=== PATIENT | male | born 1940 | race Caucasian/White ===

== ENCOUNTER → 2017-01-15 | Outpatient (CLI) | payer MEDICARE, BC ==
--- NOTE | 2017-01-15 11:29 | CR ---
EXAMINATION: Lumbar spine HISTORY: Low back pain COMPARISON: 08/21/2016 TECHNIQUE: AP and lateral views FINDINGS: There is stable posterior fusion at L3-L4 and anterior fusion at L5-S1. The interbody osse ous fusion is noted from L4 to S1. No fracture or acute osseous abnormality. Bone mineralization oth erwise appears normal. Alignment appears unchanged. The SI joints are symmetric. IMPRESSION: Stable postoperative changes noted within the lumbar spine.
== END ==
LOC: MW.DI 09:31
PROVIDERS: ATTEND Neurological Surgery
DX: M54.5 Low back pain (principal); Z98.1 Arthrodesis status
CPT/HCPCS: 72100; 72100-26

== ENCOUNTER → 2017-01-22 | Outpatient (CLI) | payer MEDICARE, BC | LOC: MW.CHPM 08:00 | PROVIDERS: ATTEND Anesthesiology | DX: M96.1 Postlaminectomy syndrome, not elsewhere classified (principal); M79.1 Myalgia; G89.4 Chronic pain syndrome | CPT/HCPCS: 20553; 99214; J0702 ==

== ENCOUNTER 2017-06-12 10:39 | Day surgery (SDC) | payer MEDICARE, BC ==
[2017-06-12] MEDS ORDERED: Betamethasone Acetate/Betamethasone Sod Phosphate 30 MG/5 ML MDV ONE (11:28)
[2017-06-12] MEDS ORDERED: Iopamidol 408 MG/ML 50 ML SDV ONE (11:29)
[2017-06-12] MEDS ORDERED: Ropivacaine 0.5% 5 MG/ML 30 ML SDV ONE (11:29)
[2017-06-12] MEDS ORDERED: Lidocaine 2% 5 ML SDV ONE ×3 (11:29→14:23)
--- NOTE | 2017-06-12 12:17 | PCM.PREANE ---
Preanesthetic Assessment - Anesthesia/Transfusion/Family Hx Anesthesia History: Prior Anesthesia Without Reaction Family History of Anesthesia Reaction: No Transfusion History: No Prior Transfusion(s) Intubation History: Unknown - Review of Systems General: No Symptoms Pulmonary: No Symptoms Cardiovascular: No Symptoms Gastrointestinal: No Symptoms Neurological: No Symptoms Other: Reports: None - Physical Assessment Height: 1.83 m Weight: 95.708 kg ASA Class: 2 Mental Status: Alert & Oriented x3 Airway Class: Mallampati = 2 Dentition: Reports: Partial (upper front) Thyro-Mental Finger Breadths: 2 Mouth Opening Finger Breadths: 2 ROM/Head Extension: Limited/Partial Lungs: Clear to Auscultation, Normal Respiratory Effort Cardiovascular: Regular Rate, Regular Rhythm - Allergies Allergies/Adverse Reactions: Allergies Allergy/AdvReac Type Severity Reaction Status Date / Time amoxicillin [From Augmentin] Allergy Itching Verified 06/08/17 08:43 clavulanic acid Allergy Itching Verified 06/08/17 08:43 [From Augmentin] - Blood Blood Available: No - Anesthesia Plan Pre-Op Medication Ordered: None - Acknowledgements Anesthesia Type Planned: MAC Pt an Appropriate Candidate for the Planned Anesthesia: Yes Alternatives and Risks of Anesthesia Discussed w Pt/Guardian: Yes Pt/Guardian Understands and Agrees with Anesthesia Plan: Yes PreAnesthesia Questionnaire HEENT History: Reports: Other (See Below) Other HEENT History: wears glasses, top partial , deepak hearing aids Cardiovascular History: Reports: Hypertension Gastrointestinal History: Reports: GERD Musculoskeletal History: Reports: Arthritis, Back Pain, Chronic, Fracture Other Musculoskeletal History: hx fx hand, and ribs Neurological History: Reports: Migraines - Past Surgical History Head Surgeries/Procedures: Reports: None HEENT Surgical History: Reports: Tonsillectomy GI Surgical History: Reports: Colon (resection) Other GI Surgeries/Procedures: partial colectomy for abscess on colon Neurological Surgical History: Reports: Lumbar Spine Other Neurological Surgeries/Procedures: back surgery x3 Musculoskeletal Surgical History: Reports: Shoulder Surgery Other Musculoskeletal Surgeries/Procedures:: hx rt rotator cuff repair - SUBSTANCE USE Smoking Status *Q: Never Smoker Recreational Drug Use History: No - HOME MEDS Home Medications: Home Meds Aspirin [Wise Aspirin] 81 mg PO DAILY 06/08/17 [History] Baclofen 10 mg PO DAILY 06/08/17 [History] Losartan [Cozaar] 50 mg PO DAILY 06/08/17 [History] Omeprazole Magnesium [Prilosec Otc] 20 mg PO DAILY 06/08/17 [History] SUMAtriptan [Imitrex] 50 mg PO ASDIRECTED PRN 06/08/17 [History] - CURRENT (IN HOUSE) MEDS Current Meds: Current Medications Discontinued Medications Betamethasone Acet/Betameth SodPhos (Celestone Soluspan 6 Mg/Ml) Confirm Administered Dose 30 mg .ROUTE .STK-MED ONE Stop: 06/12/17 11:29 Iopamidol (Isovue-200 (41%)) Confirm Administered Dose 50 ml .ROUTE .STK-MED ONE Stop: 06/12/17 11:30 Lidocaine (Xylocaine-Mpf 2%) Confirm Administered Dose 10 ml .ROUTE .STK-MED ONE Stop: 06/12/17 11:30 Lidocaine HCl (Xylocaine-Mpf 1%) Confirm Administered Dose 5 ml .ROUTE .STK-MED ONE Stop: 06/12/17 11:30 Ropivacaine (Naropin 0.5%) Confirm Administered Dose 30 ml .ROUTE .STK-MED ONE Stop: 06/12/17 11:30
[2017-06-12] MEDS ORDERED: Midazolam 1 MG/ML 2 ML SDV ONE (14:21)
[2017-06-12] MEDS ORDERED: Propofol 200 MG/20 ML SDV ONE (14:21)
[2017-06-12] MEDS ORDERED: fentaNYL 100 MCG/2 ML SDV ONE (14:21)
--- NOTE | 2017-06-12 16:09 | PCM48HPAN ---
Post Anesthesia Note - EVALUATION WITHIN 48HRS OF ANESTHETIC Vital Signs in Normal Range: Yes Patient Participated in Evaluation: Yes Respiratory Function Stable: Yes Airway Patent: Yes Cardiovascular Function Stable: Yes Hydration Status Stable: Yes Pain Control Satisfactory: Yes Nausea and Vomiting Control Satisfactory: Yes Mental Status Recovered: Yes - COMMENTS/OBSERVATIONS Free Text/Narrative:: no anesthesia problems, patient skipped recovery room stage of postoperative care
--- NOTE | 2017-06-13 00:12 | OR ---
SURGEON: Ely Ontiveros D.O. DATE OF PROCEDURE: 06/12/2017 SURGEON: Ely Ontiveros D.O. OR STAFF PRESENT: 1. Dejah Che, monitor technician. 2. cryptologic technician, Shell Polanco. 3. Silvino Beltre RN, Michelle Zuluaga RN, and Tabitha Michelle RN. 4. LEATHER STAMPER, Jony Craig. WOUND CLASSIFICATION: 1. PREOPERATIVE DIAGNOSES: Failed back surgery syndrome. Chronic pain syndrome POSTOPERATIVE DIAGNOSIS: Failed back surgery syndrome. Chronic pain syndrome PROCEDURES PERFORMED: Spinal cord stimulator trial with: 1. [employer] Infinion 16, 50 cm, 16 contact trial lead placed on the right to the top of T8. 2. [employer] Infinion 16, 50 cm, 16 contact trial lead placed to the left of the top of T8. 3. Fluoroscopic guidance for needle placement. ANESTHESIA: MAC. PREOPERATIVE PAIN: 5/10 to 8/10. POSTOPERATIVE PAIN: 2/10 to 3/10. SCREENING QUESTIONS: The patient answered no to all the following questions: 1. Are you allergic to iodine, Betadine, or latex? 2. Do you have a bleeding disorder? 3. Are you on anti-inflammatories or blood thinners? 4. Are you ? 5. Do you have any current local or systemic infections? 6. Do you have any joint replacements, heart valve replacements or a pacemaker? DESCRIPTION OF PROCEDURE: The patient had the procedure thoroughly explained including risks, benefits, and alternatives. Consent was signed in my clinic indicating understanding and willingness to proceed. The patient presented to [facility] and was escorted to the dressing room to disrobe and change into a hospital gown. Preoperative history and screening were performed by the nurse. Vital signs were taken and stable. The patient was set up with an IV prior to the procedure. The patient was brought back to the procedure room and placed in the prone position on the procedure room table. A pillow was placed under the abdomen in order to flatten the lumbar lordosis. The patient was positioned comfortably and there was no evidence of infection at the sites of needle insertion. The back was prepped with ChloraPrep and sterilely draped. All personnel in the operating room were dressed in appropriate attire including surgical scrubs, head and shoe covers. This was to ensure sterility while in the treatment room. During the time fluoroscopy was in use, all personnel in the operating room wore lead escalera with thyroid collars. Sterile technique was used during the procedure. Prior to the start of the procedure, prophylactic antibiotic was administered IV. Ancef 1 gm. Skeletal landmarks were identified under fluoroscopic guidance for the T12-L1 interspace. At all insertion sites, the skin and soft tissues were anesthetized with 2% lidocaine preservative-free with a sterile 27-gauge 1-1/2 inch needle. The epidural space was entered at T12-L1 with a 14-gauge Tuohy epidural needle with loss-of- resistance technique. Under live fluoroscopic guidance, the 16 standard contact lead electrodes were advanced approximately to the midline at the middle of the T8 vertebral body on the left and then by same procedure on the right. No CSF, no heme, and no paresthesia were noted. Testing by the neuromodulation clinical specialist revealed appropriate coverage of the patient's normal areas of pain. The leads were then secured to the skin with occlusive dressing. No complications were noted throughout the procedure and vital signs were stable. Then the patient was brought to the recovery room in stable condition. At that time, the patient had additional stimulation patterns programmed which covered all the normal areas of pain. The patient tolerated the procedure well and was released home with postoperative instructions for followup in the clinic. The patient will fill out a pain diary throughout the week of the spinal cord stimulator trial. Additionally, prior to discharge, postoperative instructions were given to the patient and the patient voiced understanding, including understanding of those signs and symptoms that would require emergency care. FOLLOWUP: Follow up in the Pain Clinic for reprogramming and to evaluate the efficacy of the spinal cord stimulator in the morning. ZHEN / AUGUSTINE /[id number] GISELA
--- NOTE | 2017-06-13 09:43 | CR ---
EXAMINATION: Thoracic spine HISTORY: Spinal cord stimulator trial COMPARISON: Thoracic spine dated 02/23/2017 TECHNIQUE: 6 fluoroscopic images provided FINDINGS/IMPRESSION: Operative control films demonstrate spinal cord stimulator leads projecting over the lower thoracic spine.
== END 2017-06-12 16:25 | disposition home or self-care (01) ==
LOC: MW.SDS 10:39
PROVIDERS: ATTEND Anesthesiology
DX: M96.1 Postlaminectomy syndrome, not elsewhere classified (principal); I10 Essential (primary) hypertension; Z88.1 Allergy status to other antibiotic agents; Z88.8 Allergy status to other drugs, medicaments and biological substances; Z79.82 Long term (current) use of aspirin; Z79.899 Other long term (current) drug therapy; Z98.890 Other specified postprocedural states; Z90.49 Acquired absence of other specified parts of digestive tract; Z87.891 Personal history of nicotine dependence; Z79.891 Long term (current) use of opiate analgesic; G89.29 Other chronic pain; M51.36 Other intervertebral disc degeneration, lumbar region; M79.1 Myalgia
CPT/HCPCS: 63650; 76001; C1778; G0463; J0702; J2795; Q9966; J2250; J2704; J3010

== ENCOUNTER → 2020-03-01 | Day surgery (SDC) | payer MEDICARE, BC ==
[~2020-03-01] MED LIST: Lactated Ringers 1,000 ML IV SCH; Midazolam 1 MG/ML 2 ML SDV ONE; Propofol 200 MG/20 ML SDV ONE; fentaNYL 100 MCG/2 ML SDV ONE
--- NOTE | 2020-03-01 08:12 | PCM.PREANE ---
Preanesthetic Assessment - Anesthesia/Transfusion/Family Hx Anesthesia History: Prior Anesthesia Without Reaction Family History of Anesthesia Reaction: No Transfusion History: No Prior Transfusion(s) Intubation History: Unknown - Review of Systems General: No Symptoms Pulmonary: No Symptoms Cardiovascular: No Symptoms Neurological: No Symptoms, Other (chronic pain syndromes, has spinal stimulator) Other: Reports: None - Physical Assessment NPO Status Date: 02/29/20 Height: 6 ft Weight: 98.43 kg ASA Class: 2 Mental Status: Alert & Oriented x3 Airway Class: Mallampati = 2 ROM/Head Extension: Full Lungs: Clear to Auscultation, Normal Respiratory Effort Cardiovascular: Regular Rate, Regular Rhythm - Allergies Allergies/Adverse Reactions: Allergies Allergy/AdvReac Type Severity Reaction Status Date / Time acetaminophen Allergy Cannot Verified 02/24/20 13:49 [From Lorcet (hydrocodone)] Remember amoxicillin [From Augmentin] Allergy Cannot Verified 02/24/20 13:49 Remember clavulanic acid Allergy Cannot Verified 02/24/20 13:49 [From Augmentin] Remember hydrocodone Allergy Cannot Verified 02/24/20 13:49 [From Lorcet (hydrocodone)] Remember lidocaine Allergy Tachycardia Verified 02/24/20 13:49 - Blood Blood Available: No - Anesthesia Plan Pre-Op Medication Ordered: None - Acknowledgements Anesthesia Type Planned: General Anesthesia (tiva) Pt an Appropriate Candidate for the Planned Anesthesia: Yes Alternatives and Risks of Anesthesia Discussed w Pt/Guardian: Yes Pt/Guardian Understands and Agrees with Anesthesia Plan: Yes Additional Comments: PMH: [facility], will allow hearing aid use in endo room, chronic pain syndromes, has spinal cord stimulator PLAN: tiva PreAnesthesia Questionnaire HEENT History: Reports: Hard of Hearing, Other (See Below) Other HEENT History: wears glasses, has upper partial removable denture, has bilateral hearing aides Cardiovascular History: Reports: Hypertension Gastrointestinal History: Reports: Colon Polyp, Diverticulosis, GERD Musculoskeletal History: Reports: Arthritis, Back Pain, Chronic Other Musculoskeletal History: hx fx hand, and ribs Neurological History: Reports: Migraines Hematologic History: Reports: Other (See Below) Other Hematologic History: hx of hematoma in lower back after surgery- took anticoagulants - Past Surgical History Head Surgeries/Procedures: Reports: None HEENT Surgical History: Reports: Tonsillectomy GI Surgical History: Reports: Colon, Colonoscopy Other GI Surgeries/Procedures: Partial Colectomy Neurological Surgical History: Reports: Lumbar Spine, Spinal Fusion, Other (See Below) Other Neurological Surgeries/Procedures: insertion of Spinal Cord Stimulator Musculoskeletal Surgical History: Reports: ORIF, Shoulder Surgery Other Musculoskeletal Surgeries/Procedures:: left and right RTCR, ORIF right hand and left wrist- no hardware - SUBSTANCE USE Smoking Status *Q: Never Smoker Recreational Drug Use History: No - HOME MEDS Home Medications: Home Meds Aspirin [[place] Aspirin EC] 81 mg PO DAILY 06/08/17 [History] Baclofen 10 - 20 mg PO TID PRN 06/08/17 [History] Losartan [Cozaar] 50 mg PO QAM 06/08/17 [History] Omeprazole Magnesium [Prilosec Otc] 20 mg PO DAILY 06/08/17 [History] SUMAtriptan [Imitrex] 50 mg PO ASDIRECTED PRN MDD 200 mg 06/08/17 [History] Diclofenac Sodium 4 gm TOP QID PRN 02/24/20 [History] Fluticasone Propionate [Flonase Allergy Relief] 1 spray NASBOTH DAILY PRN 02/24/20 [History] Zinc Sulfate 440 mg PO DAILY 02/24/20 [History] - CURRENT (IN HOUSE) MEDS Current Meds: Current Medications Lactated Ringer's (Ringers, Lactated) 1,000 mls @ 125 mls/hr IV ASDIRECTED [place] Discontinued Medications Fentanyl (Sublimaze) Confirm Administered Dose 100 mcg .ROUTE .STK-MED ONE Stop: 03/01/20 07:22 Midazolam HCl (Versed 1 Mg/Ml) Confirm Administered Dose 2 mg .ROUTE .STK-MED ONE Stop: 03/01/20 07:22 Propofol (Diprivan 20 Ml) Confirm Administered Dose 200 mg .ROUTE .STK-MED ONE Stop: 03/01/20 07:22
--- NOTE | 2020-03-01 09:01 | PCM.OPNOTE ---
- General Post-Op/Procedure Note Date of Surgery/Procedure: 03/01/20 Operative Procedure(s): Colonoscopy with cold ascending colon polypectomy and cold descending colon polypectomy Pre Op Diagnosis: Change in bowel function with rectal pressure. Post-Op Diagnosis: Ascending and descending colon polyps. Mild sigmoid diverticulosis. Anesthesia Technique: MAC (ASA II) Primary Surgeon: Johnson Meek Condition: Good Free Text/Narrative:: DICTATION [id number] CPT CODE 54417
--- NOTE | 2020-03-01 09:37 | PCM48HPAN ---
Post Anesthesia Note - EVALUATION WITHIN 48HRS OF ANESTHETIC Vital Signs in Normal Range: Yes Patient Participated in Evaluation: Yes Respiratory Function Stable: Yes Airway Patent: Yes Cardiovascular Function Stable: Yes Hydration Status Stable: Yes Pain Control Satisfactory: Yes Nausea and Vomiting Control Satisfactory: Yes Mental Status Recovered: Yes Vital Signs: Last Vital Signs Temp 98.4 F 03/01/20 08:55 Pulse 64 03/01/20 09:10 Resp 12 03/01/20 09:10 BP 115/72 03/01/20 09:10 Pulse Ox 93 L 03/01/20 09:10
--- NOTE | 2020-03-01 09:37 | PCM.POSTAN ---
POST ANESTHESIA ASSESSMENT - MENTAL STATUS Mental Status: Alert, Oriented - VITAL SIGNS Vital Signs: Last Vital Signs Temp 98.4 F 03/01/20 08:55 Pulse 64 03/01/20 09:10 Resp 12 03/01/20 09:10 BP 115/72 03/01/20 09:10 Pulse Ox 93 L 03/01/20 09:10 - RESPIRATORY Respiratory Status: Respiratory Rate WNL, Airway Patent, O2 Saturation Stable - CARDIOVASCULAR CV Status: Pulse Rate WNL, Blood Pressure Stable - GASTROINTESTINAL GI Status: No Symptoms - POST OP HYDRATION Hydration Status: Adequate & Stable
--- NOTE | 2020-03-01 10:36 | OR ---
SURGEON: Johnson Meek M.D. DATE OF PROCEDURE: 03/01/2020 OPERATION PERFORMED: Colonoscopy with cold ascending colon and cold descending colon polypectomy. PRIMARY SURGEON: Johnson Meek MD. ANESTHESIA: MAC. ASA CLASSIFICATION: II. PREOPERATIVE DIAGNOSIS: Change in bowel function with rectal pressure. POSTOPERATIVE DIAGNOSIS: 1. Ascending colon polyp. 2. Descending colon polyp. 3. Mild sigmoid diverticulosis. DESCRIPTION OF PROCEDURE: The patient was taken to the endoscopy room and positioned on the endoscopy table in the left lateral decubitus position. Time-out was called for appropriate identification of the patient and procedure. Monitored anesthesia care was provided. The colonoscope was inserted into the rectum and advanced with minimal difficulty to the cecum. The cecum was identified by internal landmarks and external pressure. The ileocecal valve was not cannulated. The scope was withdrawn and just proximal to the first fold in the cecum, a polyp was encountered. This was removed with the cold biopsy forceps. No significant bleeding was noted. The remainder of the ascending colon, hepatic flexure, transverse colon, and splenic flexure showed no tumors, polyps, diverticula, or angiodysplastic changes. A second polyp was encountered in the proximal descending colon and likewise removed with the cold biopsy forceps. The colonoscope was slowly withdrawn through the sigmoid colon where a few small scattered diverticula were noted. Despite his history of a partial colectomy, I did not see an anastomotic line. Suffice it to say that the colonic lumen is widely patent. The colonoscope was then withdrawn to the rectum and retroflexed to visualize the anal orifice from above. In both the straight forward view and retroflexed view, no tumors or polyps were seen. There was no obvious obstruction to the fecal stream and no significant hemorrhoids were noted. The colonoscope was then straightened, the rectum aspirated, and the colonoscope removed. The patient tolerated the procedure well and was taken to recovery room in stable condition. YODIT / HARSHL /[id number]
[2020-03-01 11:23] VITALS: BP 134/70; PULSE 56
== END | disposition home or self-care (01) ==
LOC: MW.SDS 07:49
PROVIDERS: ATTEND Surgery
DX: D12.2 Benign neoplasm of ascending colon (principal); D12.4 Benign neoplasm of descending colon; K57.30 Diverticulosis of large intestine without perforation or abscess without bleeding; I10 Essential (primary) hypertension; Z86.010 Personal history of colon polyps; Z88.6 Allergy status to analgesic agent; Z88.1 Allergy status to other antibiotic agents; Z88.5 Allergy status to narcotic agent; Z98.890 Other specified postprocedural states; Z79.82 Long term (current) use of aspirin; Z79.899 Other long term (current) drug therapy; Z79.891 Long term (current) use of opiate analgesic; Z90.49 Acquired absence of other specified parts of digestive tract; Z87.891 Personal history of nicotine dependence; Z87.19 Personal history of other diseases of the digestive system; Z96.89 Presence of other specified functional implants; Z78.9 Other specified health status
CPT/HCPCS: 45380; J2704; J7120; 88305; J2250; J3010

== ENCOUNTER 2021-04-06 14:00 | Emergency (ER) | payer MEDICARE, BC ==
--- NOTE | 2021-04-06 14:22 | EDM.PDOC ---
ED HPI GENERAL MEDICAL PROBLEM - General Chief Complaint: Lower Extremity Injury/Pain Stated Complaint: HURT HIP/HIT BY COW Time Seen by Provider: 04/06/21 14:05 Source of Information: Reports: Patient History Limitations: Reports: No Limitations - History of Present Illness INITIAL COMMENTS - FREE TEXT/NARRATIVE: HISTORY AND PHYSICAL: History of present illness: Patient is an 80-year-old male who presents to the emergency room with complaints of left lateral rib pain and left posterior hip pain post fall. 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 He denies hitting his head or having any loss of consciousness. He was able to get up by himself from the ground. When he was assisted into the emergency room he is up and ambulating and able to bear weight on the extremity. He denies any urinary or fecal incontinence. Denies any numbness, tingling, saddle paresthesias or weakness of distal extremities. Patient denies any fever, chills, headache, change in vision, syncope or near syncope. Denies any chest pain, shortness of breath or cough. Denies any GI or symptoms. Review of systems: As per history of present illness and below otherwise all systems reviewed and negative. Past medical history: As per history of present illness and as reviewed below otherwise noncontributory. Surgical history: As per history of present illness and as reviewed below otherwise non contributory. Social history: See social history for further information Family history: As per history of present illness and as reviewed below otherwise noncontributory. Physical exam: General: Well developed and well nourished. Alert and orientated x 3. Nontoxic in appearance and in no acute distress. Vital signs are stable and have been reviewed by me. Nursing notes were reviewed. HEENT: Atraumatic, nontender, no obvious injury, normocephalic, pupils equal and reactive bilaterally, negative for conjunctival pallor or scleral icterus, mucous membranes moist, TMs normal bilaterally (wears hearing aids), throat clear, teeth intact, neck supple, nontender, trachea midline. No drooling or trismus noted. No meningeal signs. No hot potato voice noted. Lungs: Clear to auscultation bilaterally. No wheezes, rales, or rhonchi. Chest tender to palpation of left lateral/midaxillary line. Normal work of breathing, no accessory muscles used. Heart: S1S2, regular rate and rhythm without overt murmur, gallops, or rubs. No JVD. No peripheral edema Abdomen: Soft, nondistended, nontender. Normoactive bowel sounds. Negative for masses or costovertebral tenderness. Pelvis: Stable nontender. C-spine/Back: No pinpoint vertebral tenderness upon palpation. No crepitus, step-offs or obvious deformities. Patient is ambulatory into the emergency room without difficulty or deficit. Able to rock back on heels and walk on toes. Denies any urinary or fecal incontinence. Denies any numbness, tingling or saddle paresthesia. No concerns of serious infection, fracture or cord compression, or cauda equina syndrome. Deep tendon reflexes brisk bilaterally. Skin: Abrasion to left posterior shoulder, left chest wall and left patella. Remaining skin is intact, warm, dry. No lesions or rashes noted. Hematologic: No petechiae or purpra. Mucosa appropriate color and normal nail bed color and refill. Extremities: Atraumatic, moves all extremities per self without difficulty or deficits, negative for cords or calf pain. Neurovascular unremarkable. Neuro: Awake, alert, oriented. Cranial nerves II through XII unremarkable. Cerebellum unremarkable. Motor and sensory unremarkable throughout. Exam nonf ocal. Psychiatric: Mood and affect are appropriate. Normal thought process. Answering questions appropriately. Notes: *This patient was seen and evaluated during the 2019 SARS-CoV-2 novel coronaviru s pandemic period. Community viral transmission is ongoing at time of this encounter and the emergency department is operating under pandemic response procedures. Patient is an 80-year-old male who presents to the emergency room with complaints of left chest wall and left posterior after being hit by a cow. Patient is ambulatory and able to bear weight. He does have abrasions noted to the left posterior shoulder, left knee and left chest wall. Wound care was provided. Patient's tetanus is up-to-date. He does state that he takes oxycodone for his chronic back pain and has not taken it yet today, requesting his prescribed medication to be given now. We will give him 1 tab of oxycodone 5/325. I did verify with prescription drug monitoring program that he does this medication as prescribed. We will get x-ray. He declines wanting any lab work. He states he does have to void, will get a UA at this time. Hip and pelvis x-ray shows no dislocation or displaced fracture. No displaced rib fracture or acute cardiopulmonary findings. Patient states he has oxycodone at home, I do not feel comfortable giving him any further narcotics. He states he has diclofenac cream and lidocaine patches at home in which she is comfortable using. I did give him a walker to use to help ambulate for comfort purposes. We discussed the need for follow-up with orthopedics as there could be a hidden occult fracture that is not witnessed at this time due to the recency of injury. I have talked with the patient about today's findings, in addition to providing specific details for plan of care. Reassessment at the time of disposition demonstrates that the patient is in no acute distress. The patient is stable for discharge, counseling was provided and we discussed in great detail signs and symptoms that would prompt them to return to the Emergency Department. Medication, follow up and supportive care measures were reviewed and discussed. Voices understanding and is agreeable to plan of care. Denies any further questions or concerns at this time. Diagnostics: UA, Chest w/ ribs, pelvis w/ hip Therapeutics: Oxycodone 5/325, Lidoderm patch, walker Prescription: None Impression: Left hip contusion Chest wall contusion Fall Abrasion Plan: 1. You were evaluated today on an emergent basis. Your x-rays of your chest/ribs and pelvis/hip show no fractures or dislocations. You will likely be sore over the next several days so please rest and apply gentle heat/stretching of the areas. 2. You can alternate Tylenol and ibuprofen as needed for pain and fever management. 3. We encourage you to follow up with your primary care provider and/or recommended specialist in the next few days for re-evaluation and further care/management. 4. If your symptoms should worsen, new symptoms develop or any of the signs and symptoms we discussed should arise please return to the emergency room or call 911 (if needed). Definitive disposition and diagnosis as appropriate pending reevaluation and review of above. left hip Pain Score (Numeric/FACES): 6 - Related Data Allergies Allergy/AdvReac Type Severity Reaction Status Date / Time No Known Allergies Allergy Verified 04/06/21 14:45 Home Meds: Home Meds Aspirin [[place] Aspirin EC] 81 mg PO DAILY 06/08/17 [History] Baclofen 10 - 20 mg PO TID PRN 06/08/17 [History] Losartan [Cozaar] 50 mg PO QAM 06/08/17 [History] Omeprazole Magnesium [Prilosec Otc] 20 mg PO DAILY 06/08/17 [History] SUMAtriptan [Imitrex] 50 mg PO ASDIRECTED PRN MDD 200 mg 06/08/17 [History] Diclofenac Sodium 4 gm TOP QID PRN 02/24/20 [History] oxyCODONE 04/06/21 [History] Past Medical History HEENT History: Reports: Hard of Hearing, Other (See Below) Other HEENT History: wears glasses, has upper partial removable denture, has bilateral hearing aides Cardiovascular History: Reports: Hypertension Gastrointestinal History: Reports: Colon Polyp, Diverticulosis, GERD Musculoskeletal History: Reports: Arthritis, Back Pain, Chronic Other Musculoskeletal History: hx fx hand, and ribs Neurological History: Reports: Migraines Hematologic History: Reports: Other (See Below) Other Hematologic History: hx of hematoma in lower back after surgery- took anticoagulants - Past Surgical History Head Surgeries/Procedures: Reports: None HEENT Surgical History: Reports: Tonsillectomy GI Surgical History: Reports: Colon, Colonoscopy Other GI Surgeries/Procedures: Partial Colectomy Neurological Surgical History: Reports: Lumbar Spine, Spinal Fusion, Other (See Below) Other Neurological Surgeries/Procedures: insertion of Spinal Cord Stimulator Musculoskeletal Surgical History: Reports: ORIF, Shoulder Surgery Other Musculoskeletal Surgeries/Procedures:: left and right RTCR, ORIF right hand and left wrist- no hardware Review of Systems - Review of Systems Review Of Systems: Comprehensive ROS is negative, except as noted in HPI. ED EXAM, GENERAL - Physical Exam Exam: See Below (See dictation) Course - Vital Signs Last Recorded V/S: Last Vital Signs Temp 97.6 F 04/06/21 14:39 Pulse 89 04/06/21 15:39 Resp 19 04/06/21 15:39 BP 139/89 04/06/21 15:39 Pulse Ox 96 04/06/21 15:39 - Orders/Labs/Meds Orders: Active Orders 24 hr Category Date Time Status Incentive Spirometry [RT Incentive Spirometry] [RC] Care 04/06/21 15:16 Ordered ASDIRECTED DME for Discharge [COMM] Stat Oth 04/06/21 15:13 Ordered Labs: Laboratory Tests 04/06/21 Range/Units 14:32 Urine Color YELLOW Urine Appearance CLEAR Urine pH 6.0 (5.0-8.0) Ur Specific [place] 1.020 (1.001-1.035) Urine Protein TRACE H (NEGATIVE) mg/dL Urine Glucose (UA) NEGATIVE (NEGATIVE) mg/dL Urine Ketones TRACE H (NEGATIVE) mg/dL Urine Occult Blood SMALL H (NEGATIVE) Urine Nitrite NEGATIVE (NEGATIVE) Urine Bilirubin NEGATIVE (NEGATIVE) Urine Urobilinogen 0.2 (<2.0) EU/dL Ur Leukocyte Esterase NEGATIVE (NEGATIVE) Urine RBC 1-3 (0-2/HPF) Urine WBC 0-2 (0-5/HPF) Ur Epithelial Cells OCCASIONAL (NONE-FEW) Urine Bacteria RARE (NEGATIVE) Urine Mucus LIGHT (NONE-MOD) Meds: Medications Discontinued Medications Generic Name Dose Route Start Last Admin Trade Name Adrian PRN Reason Stop Dose Admin Lidocaine 700 mg 04/06/21 15:12 04/06/21 15:27 Lidocaine 5% 700 Mg Patch TRDERM 04/06/21 15:13 700 mg ONETIME ONE Administration Oxycodone/Acetaminophen 1 tab 04/06/21 14:52 04/06/21 15:09 Acetaminophen/Oxycodone 325-5 Mg Tab PO 04/06/21 14:53 1 tab ONETIME ONE Administration Departure - Departure Time of Disposition: 15:14 Disposition: Home, Self-Care 01 Clinical Impression: Abrasion Contusion of rib on left side Qualifiers: Encounter type: initial encounter Qualified Code(s): S20.212A - Contusion of left front wall of thorax, initial encounter Contusion of hip, left Qualifiers: Encounter type: initial encounter Qualified Code(s): S70.02XA - Contusion of left hip, initial encounter Fall Qualifiers: Encounter type: initial encounter Qualified Code(s): W19.XXXA - Unspecified fall, initial encounter - Discharge Information Instructions: Contusion, [id number] Referrals: PCP,None [Primary Care Provider] - Forms: ED Department Discharge Additional Instructions: The following information is given to patients seen in the emergency department who are being discharged to home. This information is to outline your options for follow-up care. We provide all patients seen in our emergency department with a follow-up referral. The need for follow-up, as well as the timing and circumstances, are variable depending upon the specifics of your emergency department visit. If you don't have a primary care physician on staff, we will provide you with a referral. We always advise you to contact your personal physician following an emergency department visit to inform them of the circumstance of the visit and for follow-up with them and/or the need for any referrals to a consulting specialist. The emergency department will also refer you to a specialist when appropriate. This referral assures that you have the opportunity for follow-up care with a specialist. All of these measure are taken in an effort to provide you with optimal care, which includes your follow-up. Under all circumstances we always encourage you to contact your private physician who remains a resource for coordinating your care. When calling for follow-up care, please make the office aware that this follow-up is from your recent emergency room visit. If for any reason you are refused follow-up, please contact the [facility] Emergency Department at and asked to speak to the emergency department charge nurse. [facility] [address] [place] [address] [id number] [address] [address] Thank you for choosing the [facility] emergency department in [place] for your medical needs today. It was a pleasure caring for you. Today you were seen in the emergency department for contusion after attacked by a cow. 1. You were evaluated today on an emergent basis. Your x-rays of your chest/ribs and pelvis/hip show no fractures or dislocations. You will likely be sore over the next several days so please rest and apply gentle heat/stretching of the areas. 2. You can alternate Tylenol and ibuprofen as needed for pain and fever management. 3. We encourage you to follow up with your primary care provider and/or recommended specialist in the next few days for re-evaluation and further care/management. 4. If your symptoms should worsen, new symptoms develop or any of the signs and symptoms we discussed should arise please return to the emergency room or call 911 (if needed). Sepsis Event Note (ED) - Focused Exam Vital Signs: Vital Signs Temp Pulse Resp BP Pulse Ox 04/06/21 15:39 89 19 139/89 96 04/06/21 15:10 96 18 135/76 91 L 04/06/21 14:39 97.6 F 86 18 135/76 92 L - My Orders Last 24 Hours: My Active Orders 04/06/21 15:13 DME for Discharge [COMM] Stat 04/06/21 15:16 Incentive Spirometry [RT Incentive Spirometry] [RC] ASDIRECTED - Assessment/Plan Last 24 Hours: My Active Orders 04/06/21 15:13 DME for Discharge [COMM] Stat 04/06/21 15:16 Incentive Spirometry [RT Incentive Spirometry] [RC] ASDIRECTED
[2021-04-06] MEDS ORDERED: Acetaminophen/oxyCODONE 325-5 MG Tab PO ONE (14:52)
--- NOTE | 2021-04-06 15:06 | CR ---
INDICATION: Trauma. TECHNIQUE: Left hip radiographs, 2 views with AP pelvis. COMPARISON: None available. FINDINGS: No dislocation or displaced fracture. Mild bilateral hip osteophytosis with relative joint space preservation. The pubic symphysis and SI joints are intact. Partially imaged postsurgical changes of multilevel lumbar spinal fusion. Metallic generator device overlying the left lower abdomen. IMPRESSION: No dislocation or displaced fracture. Dictated by Manfred Lara MD @ 04/06/2021 3:04:08 PM Dictated by: Manfred Lara MD @ 04/06/2021 15:04:13 (Electronically Signed)
[2021-04-06] MEDS ORDERED: Lidocaine 5% 700 MG Patch TRDERM ONE (15:12)
--- NOTE | 2021-04-06 15:12 | CR ---
INDICATION: Trauma. TECHNIQUE: PA chest radiograph as well as 3 additional views of the left ribs. COMPARISON: None available. FINDINGS: No focal pulmonary opacity, pneumothorax, or pleural effusion. Normal cardiac size. Moderate thoracic aortic tortuosity. Spinal stimulator device overlying the mid thoracic spine. No displaced rib fracture identified on the provided radiographic images. IMPRESSION: No displaced rib fracture or acute cardiopulmonary findings. Dictated by Manfred Lara MD @ 04/06/2021 3:11:32 PM Dictated by: Manfred Lara MD @ 04/06/2021 15:11:38 (Electronically Signed)
[2021-04-06 15:40] VITALS: BP 139/89; PULSE 89
== END 2021-04-06 15:49 | disposition home or self-care (01) ==
LOC: MW.ED 14:00
DX: S20.212A Contusion of left front wall of thorax, initial encounter (principal); S70.02XA Contusion of left hip, initial encounter; K21.9 Gastro-esophageal reflux disease without esophagitis; Z79.82 Long term (current) use of aspirin; Z79.899 Other long term (current) drug therapy; W18.39XA Other fall on same level, initial encounter
CPT/HCPCS: 71101; 73502; 81001; 99283; A9270

== ENCOUNTER 2021-06-17 16:03 | Emergency (ER) | payer MEDICARE, BC ==
[2021-06-17] MEDS ORDERED: Morphine 4 MG/ML Syringe IVPUSH ONE (16:53)
--- NOTE | 2021-06-17 17:30 | PCM.EKG ---
#1 Interpretation EKG Date: 06/17/21 Time: 17:00 Rhythm: NSR Rate (Beats/Min): 67 [place]: Normal P-Wave: Present QRS: Normal ST-T: Normal QT: Normal Comparison: NA - No Prior EKG EKG Interpretation Comments: Sinus Rhythm with LVH
[2021-06-17] MEDS ORDERED: Iopamidol 755 MG/ML 500 ML Multipack Bottle IVPUSH ONE (17:45)
[2021-06-17 17:54] LABS: BLOOD UREA NITROGEN,BUN 16 mg/dL (7.0-18.0); CARBON DIOXIDE,CO2 25.1 mmol/L (21.0-32.0); CHLORIDE,CL 102 mmol/L (98-107); GLUCOSE RANDOM 137 mg/dL (74-106); POTASSIUM,K 3.8 mmol/L (3.5-5.1); SODIUM,NA 139 mmol/L (136-148)
[2021-06-17] MEDS ORDERED: HYDROmorphone 1 MG/ML Syringe IVPUSH ONE (18:17)
--- NOTE | 2021-06-17 18:20 | CT ---
INDICATION: Back and abdominal pain TECHNIQUE: CTA chest was acquired with 125 cc Isovue 370 IV contrast. COMPARISON: None FINDINGS: Cardiovascular structures: Suboptimal opacification of the thoracic aorta. No dissection is identified. No pulmonary embolism. Heart size is normal. Thoracic aorta and main pulmonary artery are normal in caliber. Mediastinum and jerome: No mass or adenopathy. Lungs: Scattered linear atelectasis. Pleura and pericardium: No effusions. Chest wall and axilla: No mass or adenopathy. Upper abdomen: Please see abdomen pelvis report. Bones: Neurostimulator device enters the spinal canal at the T8-T9 level and extends cephalad to the T6 level. Old compression fracture of the T11 vertebrae. No acute osseous findings. IMPRESSION: There is suboptimal opacification of the thoracic aorta. No dissection or pulmonary embolism identified. No acute intrathoracic abnormality. Please note that all CT scans at this facility use dose modulation, iterative reconstruction, and/or weight-based dosing when appropriate to reduce radiation dose to as low as reasonably achievable. Dictated by Anne Lara MD @ 06/17/2021 6:18:50 PM (Electronically Signed)
--- NOTE | 2021-06-17 18:41 | EDM.PDOC ---
<Rick Neal - Last Filed: 06/17/21 19:21> ED HPI GENERAL MEDICAL PROBLEM - General Chief Complaint: Abdominal Pain Stated Complaint: STOMACH PAIN Time Seen by Provider: 06/17/21 16:27 - History of Present Illness INITIAL COMMENTS - FREE TEXT/NARRATIVE: CHIEF COMPLAINT(S): Abdominal pain and back pain HISTORY OF PRESENT ILLNESS: This is a 81-year-old man with a past medical history of GERD, chronic back pain on oxycodone who comes to the emergency department with a chief complaint of abdominal pain and back pain. The patient states that starting this morning after breakfast he started to experience pain which he describes as sharp 10 out of 10 pain that is located from his mid back anteriorly to the middle of his abdomen. He states that this pain is constant. He denies any nausea, vomiting, diarrhea, medic easier, hematemesis or bilious emesis. He denies any fevers or chills. He denies any chest pain or shortness of breath. He denies any diaphoresis. He states he took oxycodone but that did not help. He states it also feels like his muscles are tight. There are no relieving factors. No aggravating factors. He denies any recent travel, recent surgery or prior history of DVT or PE. He denies any history of abdominal aortic aneurysm or history of dissection. REVIEW OF SYSTEMS: Constitutional: Denies fever, chills. Eyes: Denies eye pain Ears, Nose, Mouth, & Throat: Denies earache Cardiovascular: Denies chest pain Respiratory: Denies shortness of breath Gastrointestinal: Positive for epigastric abdominal pain. Denies nausea, vomiting, diarrhea, hematochezia, hematemesis, bilious emesis Genitourinary: Denies hematuria Skin:Denies a rash MSK: Positive for back pain. Denies joint pain Neurological: Denies blurred vision Psychiatric: Denies depression PAST MEDICAL HISTORY: As per history of present illness and as reviewed below otherwise noncontributory. SURGICAL HISTORY: As per history of present illness and as reviewed below otherwise noncontributory. SOCIAL HISTORY: As per history of present illness and as reviewed below otherwise noncontributory. FAMILY HISTORY: As per history of present illness and as reviewed below otherwise noncontributory. EXAMINATION OF ORGAN SYSTEMS/BODY AREAS: Constitutional: Blood pressure is 187/96, heart rate 63, respiratory rate 20 with an oxygen saturation of 95% on room air. Temperature 36.8. General: Elderly man who appears to be in a moderate amount of pain. Psychiatric: Appropriate mood and affect. Eyes: No scleral icterus or conjunctival erythema ENMT: Moist mucous membranes. No pharyngeal erythema Cardiovascular: Regular, rate, and rhythm. No gallops, murmurs, or rubs. Bilateral upper extremity pulses symmetric and intact. No peripheral edema. No JVD. Respiratory: Lungs clear to auscultation bilaterally. No wheezes, rales, or rhonchi. Gastrointestinal: Soft, tenderness palpation the epigastric region. Nondistended. Negative Carrizales's and McBurney's. No rebound or guarding. Norm oactive bowel sounds Genitourinary: No suprapubic tenderness Musculoskeletal: Normal range of motion. No midline spinal tenderness. No skin changes. Skin: No lesions or abrasions. Neurological: Alert, GCS 15 strength and sensation grossly intact in upper and lower extremities bilaterally MEDICAL DECISION MAKING AND COURSE IN THE ED WITH INTERPRETATION/REVIEW OF DIAGNOSTIC STUDIES: This is a 81-year-old man with a past medical history of hypertension and GERD who comes to the emergency department with acute onset epigastric abdominal pain and back pain who is mildly hypertensive. At this time given his history and concerned about the possibility of dissection versus aortic aneurysm. We will obtain a CT angiogram of the chest abdomen and pelvis. We will provide the patient with 4 mg of IV morphine for pain relief. In addition we will obtain CBC, CMP, troponin, urinalysis. EKG was obtained which not reveal any acute signs of ischemia. Laboratory: CBC reveals thrombocytopenia otherwise unremarkable. CMP reveals hyperglycemia at 137, hyperbilirubinemia at 1.6, transaminitis with an AST of 173, ALT of 146 and alkaline phosphatase of 148. Troponin is negative. Urinalysis shows microscopic hematuria otherwise unremarkable. On reevaluation the patient did report continued pain. Therefore we provided the patient with 1 mg of IV Dilaudid. The radiological images were viewed by myself along with reading the report from the radiologist. CT angiogram of the chest does not reveal any dissection or pulmonary embolism and no acute intrathoracic abnormality. CT angiogram of the abdomen does not reveal any evidence of abdominal aortic aneurysm or dissection. There is cholelithiasis and hepatic steatosis with colonic diverticulosis without any acute intra-abdominal process. Given the elevation in the enzymes on labs will obtain a right upper quadrant ultrasound to evaluate for acute cholecystitis. The patient was signed out to oncoming night team physician pending ultrasound and reevaluation. DISPOSITION: Patient was signed out to oncoming night team physician pending ultrasound and final disposition CONDITION: Fair PROCEDURES: Cardiac monitoring interpretation, pulse oximetry interpretation FINAL IMPRESSION(S)/DIAGNOSES: 1. Acute abdominal pain possibly secondary to cholecystitis versus choledocholithiasis Critical Care Procedure Note Authorized and performed by: Rick Neal M.D. Critical Care Time: 43 minutes Due to a high probability of clinically significant, life threatening deterioration, the patient required my highest level of preparedness to intervene emergently and I personally spent this critical care time directly and personally managing the patient. This critical care time included obtaining a history, examining the patient, pulse oximetry; ordering and review of studies; arranging urgent treatment with development of a management plan; evaluation of a patients reponse to treatment; frequent assessment; and discussions with other providers. This critical care time was performed to assess and manage the high probability of imminent, life threatening deterioration that could result in multiorgan failure. It was exclusive of separate billable procedures and treating other patients. Please see MDM section and rest of the note for further information on patient assessment and treatment. Please see MDM section and rest of the note for further information on patient assessment and treatment. Rick Neal M.D. Right Upper Abdomen Pain Score (Numeric/FACES): 8 - Related Data Allergies Allergy/AdvReac Type Severity Reaction Status Date / Time No Known Allergies Allergy Verified 06/17/21 16:59 Home Meds: Home Meds Aspirin [[place] Aspirin EC] 81 mg PO DAILY 06/08/17 [History] Baclofen 10 - 20 mg PO TID PRN 06/08/17 [History] Losartan [Cozaar] 50 mg PO QAM 06/08/17 [History] Omeprazole Magnesium [Prilosec Otc] 20 mg PO DAILY 06/08/17 [History] SUMAtriptan [Imitrex] 50 mg PO ASDIRECTED PRN MDD 200 mg 06/08/17 [History] Diclofenac Sodium 4 gm TOP QID PRN 02/24/20 [History] oxyCODONE 04/06/21 [History] Past Medical History - Past Health History Medical/Surgical History: Denies Medical/Surgical History HEENT History: Reports: Hard of Hearing, Other (See Below) Other HEENT History: wears glasses, has upper partial removable denture, has bilateral hearing aides Cardiovascular History: Reports: Hypertension Respiratory History: Reports: None Gastrointestinal History: Reports: Colon Polyp, Diverticulosis, GERD Genitourinary History: Reports: None Musculoskeletal History: Reports: Arthritis, Back Pain, Chronic Other Musculoskeletal History: hx fx hand, and ribs Neurological History: Reports: Migraines Psychiatric History: Reports: None Endocrine/Metabolic History: Reports: None Hematologic History: Reports: Other (See Below) Other Hematologic History: hx of hematoma in lower back after surgery- took anticoagulants Immunologic History: Reports: None Oncologic (Cancer) History: Reports: None Dermatologic History: Reports: None - Infectious Disease History Infectious Disease History: Reports: Chicken Pox, Influenza, Measles, Mumps - Past Surgical History Head Surgeries/Procedures: Reports: None HEENT Surgical History: Reports: Tonsillectomy GI Surgical History: Reports: Colon, Colonoscopy Other GI Surgeries/Procedures: Partial Colectomy Neurological Surgical History: Reports: Lumbar Spine, Spinal Fusion, Other (See Below) Other Neurological Surgeries/Procedures: insertion of Spinal Cord Stimulator Musculoskeletal Surgical History: Reports: ORIF, Shoulder Surgery Other Musculoskeletal Surgeries/Procedures:: left and right RTCR, ORIF right hand and left wrist- no hardware Social & Family History - Family History Family Medical History: No Pertinent Family History - Tobacco Use Tobacco Use Status *Q: Never Tobacco User - Caffeine Use Caffeine Use: Reports: Coffee - Recreational Drug Use Recreational Drug Use: No Departure - Departure Disposition: Home, Self-Care 01 Clinical Impression: Cholelithiasis Qualifiers: Cholelithiasis location: gallbladder Cholecystitis presence: with cholecystitis Cholecystitis acuity: unspecified acuity Biliary obstruction: without biliary obstruction Qualified Code(s): 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 The CT scan of your abdomen pelvis not reveal any significant abnormalities. Your blood test however did show that your liver enzymes are slightly elevated which could be consistent with gallstones. An ultrasound of your gallbladder was then obtained which does reveal that you do have gallstones in your gallbladder but no evidence of infection or acute obstruction. This is likely the cause of the pain that you have been experiencing. As we discussed, I am recommending that you avoid any fatty or greasy foods until you are further evaluated by surgery. Please keep your appointment on June 22 with your family doctor so they can assist you with referrals. I will also give the phone number for our surgery clinic here as a option to see. You will also be given a prescription for Bentyl to take before eating which is a medicine that helps relax your gallbladder. The following information is given to patients seen in the emergency department who are being discharged to home. This information is to outline your options for follow-up care. We provide all patients seen in our emergency department with a follow-up referral. The need for follow-up, as well as the timing and circumstances, are variable depending upon the specifics of your emergency department visit. If you don't have a primary care physician on staff, we will provide you with a referral. We always advise you to contact your personal physician following an emergency department visit to inform them of the circumstance of the visit and for follow-up with them and/or the need for any referrals to a consulting specialist. The emergency department will also refer you to a specialist when appropriate. This referral assures that you have the opportunity for follow-up care with a specialist. All of these measure are taken in an effort to provide you with optimal care, which includes your follow-up. Under all circumstances we always encourage you to contact your private physician who remains a resource for coordinating your care. When calling for follow-up care, please make the office aware that this follow-up is from your recent emergency room visit. If for any reason you are refused follow-up, please contact the [facility] Emergency Department at and asked to speak to the emergency department charge nurse. [facility] - [facility] [address] [place] [id number] [facility] [address] [place] [id number] Sepsis Event Note (ED) - Evaluation Sepsis Screening Result: No Definite Risk <Darin Zhong - Last Filed: 06/17/21 21:11> ED HPI GENERAL MEDICAL PROBLEM - History of Present Illness INITIAL COMMENTS - FREE TEXT/NARRATIVE: 9:06 PM: Signout received from Dr. Jama at 7 PM. This is a 81-year-old gentleman who presents ER today with abdominal pain rating to his back. Patient had a CT scan of his abdomen pelvis which was unremarkable. Patient does have mildly elevated LFTs so a ultrasound was ordered. Patient's ultrasound reveals cholelithiasis without any sonographic evidence of cholecystitis. Patient's common bile duct measures 5 mm. Patient has a minimal fatty infiltration of the liver. Patient has been reevaluated by me multiple times throughout his ED visit. On all 3 occasions, the patient reports that his pain has been completely resolved and he has had no further abdominal or back pain since he was given his pain medicines greater than 3 hours ago. I have discussed the results of the ultrasound and the CT scan with the patient he understands that he will likely need to be reevaluated by surgery for further evaluation. Patient has no evidence of cholecystitis. Patient is comfortable has no pain at this time. Patient be discharged home with a prescription for Bentyl and referral for surgery clinic. Patient reports that he does have an appointment with his family practice doctor on June 22 and he will be able to discuss with him referral to surgery either here or in [place] which is patient's preference. I discussed dietary changes and discussion with the patient. He reports that he has noticed in the past that whenever he eats isaac or sausage that he has sim ilar kind of discomfort and he will try and refrain from fatty foods until he is evaluated by surgery. Reassessment at the time of disposition demonstrates that the patient is in no acute distress. The patient has remained stable throughout the entire ED visit and is without objective evidence for acute process requiring urgent intervention or hospitalization. The patient is stable for discharge, counseling is provided as documented above, discussed symptomatic treatment and specific conditions for return. I have spoken with the patient/caregiver and discussed todays findings, in addition to providing specific details for the plan of care. Questions are answered and there is agreement with the plan. ED ROS GENERAL - Review of Systems Review Of Systems: See Below ED EXAM, GENERAL - Physical Exam Exam: See Below Course - Vital Signs Last Recorded V/S: Last Vital Signs Temp 98.2 F 06/17/21 16:26 Pulse 73 06/17/21 18:47 Resp 16 06/17/21 18:47 BP 161/86 H 06/17/21 18:47 Pulse Ox 95 06/17/21 18:47 - Orders/Labs/Meds Orders: Active Orders 24 hr Category Date Time Status Cardiac Monitoring [RC] . DIRECTED Care 06/17/21 16:50 Active Pulse Oximetry [RC] ASDIRECTED Care 06/17/21 16:50 Active Ang Abdomen Aorta w Bi Runoff [CT] Stat Exams 06/17/21 16:53 Taken Labs: Laboratory Tests 06/17/21 06/17/21 06/17/21 Range/Units 17:08 17:08 17:08 WBC 7.72 (4.0-11.0) K/uL RBC 4.85 (4.50-5.90) M/uL Hgb 14.5 (13.0-17.0) g/dL Hct 43.6 (38.0-50.0) % MCV 89.9 (80.0-98.0) fL MCH 29.9 (27.0-32.0) pg MCHC 33.3 (31.0-37.0) g/dL RDW Std Deviation 43.5 (28.0-62.0) fl RDW Coeff of Naomi 13 (11.0-15.0) % Plt Count 144 L (150-400) K/uL MPV 10.90 (7.40-12.00) fL Neut % (Auto) 79.6 (48.0-80.0) % Lymph % (Auto) 8.5 L (16.0-40.0) % Louisa % (Auto) 10.5 (0.0-15.0) % Eos % (Auto) 1.3 (0.0-7.0) % Baso % (Auto) 0.1 (0.0-1.5) % Neut # (Auto) 6.1 H (1.4-5.7) K/uL Lymph # (Auto) 0.7 (0.6-2.4) K/uL Louisa # (Auto) 0.8 (0.0-0.8) K/uL Eos # (Auto) 0.1 (0.0-0.7) K/uL Baso # (Auto) 0.0 (0.0-0.1) K/uL Nucleated RBC % 0.0 /100WBC Nucleated RBCs # 0 K/uL Sodium 139 (136-148) mmol/L Potassium 3.8 (3.5-5.1) mmol/L Chloride 102 (98-107) mmol/L Carbon Dioxide 25.1 (21.0-32.0) mmol/L BUN 16 (7.0-18.0) mg/dL Creatinine 1.1 (0.8-1.3) mg/dL Est Cr Clr Drug Dosing 55.14 mL/min Estimated GFR (MDRD) > 60.0 ml/min Glucose 137 H (74-106) mg/dL Lactic Acid 0.8 (0.4-2.0) mmol/L Calcium 8.5 (8.5-10.1) mg/dL Total Bilirubin 1.6 H (0.2-1.0) mg/dL AST 173 H (15-37) IU/L ALT 146 H (14-63) IU/L Alkaline Phosphatase 148 H (46-116) U/L Troponin I < 0.050 (0.000-0.056) ng/mL Total Protein 7.4 (6.4-8.2) g/dL Albumin 4.0 (3.4-5.0) g/dL Globulin 3.4 (2.6-4.0) g/dL Albumin/Globulin Ratio 1.2 (0.9-1.6) Urine Color Urine Appearance Urine pH (5.0-8.0) Ur Specific Rigby (1.001-1.035) Urine Protein (NEGATIVE) mg/dL Urine Glucose (UA) (NEGATIVE) mg/dL Urine Ketones (NEGATIVE) mg/dL Urine Occult Blood (NEGATIVE) Urine Nitrite (NEGATIVE) Urine Bilirubin (NEGATIVE) Urine Urobilinogen (<2.0) EU/dL Ur Leukocyte Esterase (NEGATIVE) Urine RBC (0-2/HPF) Urine WBC (0-5/HPF) Ur Epithelial Cells (NONE-FEW) Urine Bacteria (NEGATIVE) 06/17/21 Range/Units 18:00 WBC (4.0-11.0) K/uL RBC (4.50-5.90) M/uL Hgb (13.0-17.0) g/dL Hct (38.0-50.0) % MCV (80.0-98.0) fL MCH (27.0-32.0) pg MCHC (31.0-37.0) g/dL RDW Std Deviation (28.0-62.0) fl RDW Coeff of Naomi (11.0-15.0) % Plt Count (150-400) K/uL MPV (7.40-12.00) fL Neut % (Auto) (48.0-80.0) % Lymph % (Auto) (16.0-40.0) % Louisa % (Auto) (0.0-15.0) % Eos % (Auto) (0.0-7.0) % Baso % (Auto) (0.0-1.5) % Neut # (Auto) (1.4-5.7) K/uL Lymph # (Auto) (0.6-2.4) K/uL Louisa # (Auto) (0.0-0.8) K/uL Eos # (Auto) (0.0-0.7) K/uL Baso # (Auto) (0.0-0.1) K/uL Nucleated RBC % /100WBC Nucleated RBCs # K/uL Sodium (136-148) mmol/L Potassium (3.5-5.1) mmol/L Chloride (98-107) mmol/L Carbon Dioxide (21.0-32.0) mmol/L BUN (7.0-18.0) mg/dL Creatinine (0.8-1.3) mg/dL Est Cr Clr Drug Dosing mL/min Estimated GFR (MDRD) ml/min Glucose (74-106) mg/dL Lactic Acid (0.4-2.0) mmol/L Calcium (8.5-10.1) mg/dL Total Bilirubin (0.2-1.0) mg/dL AST (15-37) IU/L ALT (14-63) IU/L Alkaline Phosphatase (46-116) U/L Troponin I (0.000-0.056) ng/mL Total Protein (6.4-8.2) g/dL Albumin (3.4-5.0) g/dL Globulin (2.6-4.0) g/dL Albumin/Globulin Ratio (0.9-1.6) Urine Color YELLOW Urine Appearance CLEAR Urine pH 6.0 (5.0-8.0) Ur Specific Rigby 1.015 (1.001-1.035) Urine Protein NEGATIVE (NEGATIVE) mg/dL Urine Glucose (UA) NEGATIVE (NEGATIVE) mg/dL Urine Ketones NEGATIVE (NEGATIVE) mg/dL Urine Occult Blood SMALL H (NEGATIVE) Urine Nitrite NEGATIVE (NEGATIVE) Urine Bilirubin NEGATIVE (NEGATIVE) Urine Urobilinogen 0.2 (<2.0) EU/dL Ur Leukocyte Esterase NEGATIVE (NEGATIVE) Urine RBC 1-3 (0-2/HPF) Urine WBC 0-1 (0-5/HPF) Ur Epithelial Cells RARE (NONE-FEW) Urine Bacteria RARE (NEGATIVE) Meds: Medications Discontinued Medications Generic Name Dose Route Start Last Admin Trade Name Freq PRN Reason Stop Dose Admin Hydromorphone HCl 1 mg 06/17/21 18:17 06/17/21 18:40 Hydromorphone 1 Mg/Ml Syringe IVPUSH 06/17/21 18:18 1 mg ONETIME ONE Administration Iopamidol 125 ml 06/17/21 17:45 06/17/21 17:45 Iopamidol 755 Mg/Ml 500 Ml Multipack Bottle IVPUSH 06/17/21 17:46 125 ml ONETIME ONE Administration Morphine Sulfate 4 mg 06/17/21 16:53 06/17/21 17:36 Morphine 4 Mg/Ml Syringe IVPUSH 06/17/21 16:54 4 mg ONETIME ONE Administration Departure - Departure Time of Disposition: 21:09 Condition: Good Sepsis Event Note (ED) - Focused Exam Vital Signs: Vital Signs Temp Pulse Resp BP Pulse Ox 06/17/21 18:47 73 16 161/86 H 95 06/17/21 16:26 98.2 F 63 20 187/96 H
--- NOTE | 2021-06-17 20:43 | US ---
INDICATION: Elevated enzymes TECHNIQUE: Ultrasound abdomen limited. Sonographic images of the right upper quadrant were obtained using hernández-scale and color Doppler images. COMPARISON: Abdomen and pelvis CT 06/17/2021 FINDINGS: Liver: Minimally increased in echogenicity without focal lesion. Gallbladder: Cholelithiasis without gallbladder wall thickening. No pericholecystic fluid. Common bile duct: 5 mm. Pancreas: Obscured by bowel gas. Right kidney: Normal in size. Normal echotexture and cortex. No masses, stones, or hydronephrosis. IMPRESSION: 1. Cholelithiasis without sonographic evidence of cholecystitis. 2. Minimal fatty infiltration liver. Dictated by Uri Haywood MD @ 06/17/2021 8:41:37 PM (Electronically Signed)
[2021-06-17 21:25] VITALS: BP 158/83; PULSE 72
--- NOTE | 2021-06-20 12:18 | CT ---
INDICATION: Abdominal and back pain TECHNIQUE: CT abdomen and pelvis acquired with 125 cc Isovue 370 IV contrast. COMPARISON: None FINDINGS: Lower chest: Please see chest CT. Liver: Hepatic steatosis. Spleen: Unremarkable. Pancreas: Unremarkable. Gallbladder and bile ducts: Cholelithiasis. Adrenal glands: Unremarkable. Kidneys: Unremarkable. GI tract: Mild colonic diverticulosis. Appendix is normal. Vascular structures: No abdominal aortic dissection or aneurysm. Minimal atherosclerotic calcifications. Lymph nodes: Unremarkable. Miscellaneous: Unremarkable. No free air or significant free fluid. Pelvic Organs: Enlarged prostate gland. Bones: Internal fixation hardware in the lumbar spine. Neural stimulator device in the left flank. No acute osseous abnormality. IMPRESSION: No abdominal aortic aneurysm or dissection. No acute intra-abdominal process identified. Cholelithiasis. Hepatic steatosis. Colonic diverticulosis. Enlarged prostate gland. Please note that all CT scans at this facility use dose modulation, iterative reconstruction, and/or weight-based dosing when appropriate to reduce radiation dose to as low as reasonably achievable. Dictated by Anne Lara MD @ 06/17/2021 6:43:50 PM Signed by: Anne Lara MD @06/17/2021 6:43:50 PM (Electronic Signature) [facility]
== END 2021-06-17 21:25 | disposition home or self-care (01) ==
LOC: MW.ED 16:03
DX: K80.10 Calculus of gallbladder with chronic cholecystitis without obstruction (principal); I10 Essential (primary) hypertension; K21.9 Gastro-esophageal reflux disease without esophagitis; M19.90 Unspecified osteoarthritis, unspecified site; Z79.82 Long term (current) use of aspirin; Z79.899 Other long term (current) drug therapy
CPT/HCPCS: 36415; 71275; 75635; 76705; 80053; 81001; 83605; 84484; 85025; 93005; 96374; 96375; 99284; J1170; J2270; Q9967

== ENCOUNTER 2021-07-28 19:49 | Emergency (ER) | payer MEDICARE, BC ==
[2021-07-28] MEDS ORDERED: Sodium Chloride 0.9% 10 ML Syringe FLUSH PRN (19:59)
[2021-07-28] MEDS ORDERED: Sodium Chloride 0.9% 2.5 ML Syringe FLUSH PRN (19:59)
--- NOTE | 2021-07-28 20:06 | EDM.PDOC ---
ED HPI GENERAL MEDICAL PROBLEM - General Chief Complaint: General Stated Complaint: EMS Time Seen by Provider: 07/28/21 19:52 - History of Present Illness INITIAL COMMENTS - FREE TEXT/NARRATIVE: History of present illness: [] Patient states he had his gallbladder out yesterday at [facility]. When he went home he felt little better. Subsequently he has gradually felt abdominal discomfort and anorexia. He has some vague abdominal pain not nearly as severe as his worst episode of biliary colic presurgery. He was able to pass gas this morning but not recently and has not had any BM since his surgery. He is not urinating most of the day today and says when he stands and weights he has just a trickle. Of note the patient's oxygen saturation was the percent on room air at home and he is not an oxygen dependent patient. He arrives on 6 L nasal cannula and his oxygen saturation 90%. Review of systems: As per history of present illness and below otherwise all systems reviewed and negative. Past medical history: As per history of present illness and as reviewed below otherwise noncontributory. Surgical history: As per history of present illness and as reviewed below otherwise noncontributory. Social history: No reported history of drug or alcohol abuse. Family history: As per history of present illness and as reviewed below otherwise noncontributory. Physical exam: Constitutional - well developed, well-nourished and in no acute distress HEENT - normocephalic, no evidence of trauma - external nose and mouth normal - no mass in neck and no JVD - mucosae moist EYES - full EOM, PERRL, no icterus - no evidence of inflammation, injection, or drainage Respiratory - no respiratory distress, equal bilateral expansion, lungs clear to auscultation and no abnormal lung sounds Cardiovascular - Regular Rhythm with S1 and S2 appreciated and no murmur, gallop or rub. GI - abdomen firm and the right upper quadrant is firmer than the remainder suggesting the possibility of hepatomegaly-or organomegaly - normal bowel sounds - no guard or rebound Musculoskeletal no gross deformity of long bones or joints - no tenderness, swelling or edema Neurologic - Alert and oriented times four - CN II-XII grossly intact - motor sensory and coordination symmetrically normal Psychiatric - appropriate mood and affect with normal thought content Hematologic - No petechiae or purpura - mucosa appropriate color and sclera not pale - normal nail bed color and refill Integument -abdomen is marked with the catheter insertion sites for the endoscopic cholecystectomy and some areas of ecchymosis consistent with the recent procedure. No rash or evidence of trauma - normal turgor Diagnostics: [] Therapeutics: [] Impression: [] Plan: [] Definitive disposition and diagnosis as appropriate pending reevaluation and review of above. Right abdomen Pain Score (Numeric/FACES): 7 - Related Data Allergies Allergy/AdvReac Type Severity Reaction Status Date / Time No Known Allergies Allergy Verified 07/28/21 20:10 Home Meds: Home Meds Aspirin [Drumright Aspirin EC] 81 mg PO DAILY 06/08/17 [History] Baclofen 10 - 20 mg PO TID PRN 06/08/17 [History] Losartan [Cozaar] 50 mg PO QAM 06/08/17 [History] Omeprazole Magnesium [Prilosec Otc] 20 mg PO DAILY 06/08/17 [History] SUMAtriptan [Imitrex] 50 mg PO ASDIRECTED PRN MDD 200 mg 06/08/17 [History] Diclofenac Sodium 4 gm TOP QID PRN 02/24/20 [History] oxyCODONE 04/06/21 [History] Dicyclomine [Bentyl] 20 mg PO QIDACANDBED #20 tab 06/17/21 [Rx] Past Medical History - Past Health History Medical/Surgical History: Denies Medical/Surgical History HEENT History: Reports: Hard of Hearing, Other (See Below) Other HEENT History: wears glasses, has upper partial removable denture, has bilateral hearing aides Cardiovascular History: Reports: Hypertension Respiratory History: Reports: None Gastrointestinal History: Reports: Colon Polyp, Diverticulosis, GERD Genitourinary History: Reports: None Musculoskeletal History: Reports: Arthritis, Back Pain, Chronic Other Musculoskeletal History: hx fx hand, and ribs Neurological History: Reports: Migraines Psychiatric History: Reports: None Endocrine/Metabolic History: Reports: None Hematologic History: Reports: Other (See Below) Other Hematologic History: hx of hematoma in lower back after surgery- took anticoagulants Immunologic History: Reports: None Oncologic (Cancer) History: Reports: None Dermatologic History: Reports: None - Infectious Disease History Infectious Disease History: Reports: Chicken Pox, Influenza, Measles, Mumps - Past Surgical History Head Surgeries/Procedures: Reports: None HEENT Surgical History: Reports: Tonsillectomy GI Surgical History: Reports: Colon, Colonoscopy Other GI Surgeries/Procedures: Partial Colectomy Neurological Surgical History: Reports: Lumbar Spine, Spinal Fusion, Other (See Below) Other Neurological Surgeries/Procedures: insertion of Spinal Cord Stimulator Musculoskeletal Surgical History: Reports: ORIF, Shoulder Surgery Other Musculoskeletal Surgeries/Procedures:: left and right RTCR, ORIF right hand and left wrist- no hardware Social & Family History - Family History Family Medical History: No Pertinent Family History - Caffeine Use Caffeine Use: Reports: Coffee ED ROS GENERAL - Review of Systems Review Of Systems: Comprehensive ROS is negative, except as noted in HPI. ED EXAM, GENERAL - Physical Exam Exam: See Below Free Text/Narrative:: My physical exam is in the HPI #1 Interpretation EKG Interpretation Comments: EKG performed 07/28/2021 at 8:35 PM shows a sinus rhythm with a heart rate of 67. SD interval 171 and QT duration 463. [place] -24. There is inferior infarct of age undetermined with poor R wave progression. There is a prominent R wave in V2 and then the transition to are between V3 and V4. There are nonspecific ST changes in the lateral precordial leads and nonspecific T wave changes infer iorly and anteriorly. When compared to 06/17/[address] and T changes are somewhat different but the QRS is essentially unchanged. Impression no obvious acute injury. Cannot rule out ischemia. Course - Vital Signs Last Recorded V/S: Last Vital Signs Temp 36.8 C 07/28/21 19:50 Pulse 71 07/28/21 19:50 Resp 18 07/28/21 19:50 BP 105/76 07/28/21 19:50 Pulse Ox 85 L 07/28/21 19:50 - Orders/Labs/Meds Orders: Active Orders 24 hr Category Date Time Status Communication Order [RC] STAT Care 07/28/21 20:01 Active EKG Documentation Completion [RC] AM Care 07/28/21 19:59 Active Galarza Catheter Insertion [Insert Urinary Catheter] [OM. Care 07/28/21 20:15 Ordered PC] Q24H Incentive Spirometry [RT Incentive Spirometry] [RC] Care 07/28/21 20:19 Active ONETIME Urinary Catheter Assessment [RC] ASDIRECTED Care 07/28/21 20:02 Active Chest 1V Frontal [CR] Stat Exams 07/28/21 19:59 Ordered KUB [Abdomen 1V Flat] [CR] Stat Exams 07/28/21 20:00 Ordered UA W/GOLD RFLX IF INDICATED [URIN] Stat Lab 07/28/21 20:00 Ordered Sodium Chloride 0.9% [Saline Flush] Med 07/28/21 19:59 Active 10 ml FLUSH ASDIRECTED PRN Sodium Chloride 0.9% [Saline Flush] Med 07/28/21 19:59 Active 2.5 ml FLUSH ASDIRECTED PRN Saline Lock Insert [OM.PC] Stat Oth 07/28/21 19:59 Ordered Medication Orders Sodium Chloride (Sodium Chloride 0.9% 10 Ml Syringe) 10 ml FLUSH ASDIRECTED PRN PRN Reason: Keep Vein Open Sodium Chloride (Sodium Chloride 0.9% 2.5 Ml Syringe) 2.5 ml FLUSH ASDIRECTED PRN PRN Reason: Keep Vein Open Labs: Laboratory Tests 07/28/21 07/28/21 Range/Units 20:00 20:00 WBC 8.78 (4.0-11.0) K/uL RBC 4.69 (4.50-5.90) M/uL Hgb 14.2 (13.0-17.0) g/dL Hct 42.7 (38.0-50.0) % MCV 91.0 (80.0-98.0) fL MCH 30.3 (27.0-32.0) pg MCHC 33.3 (31.0-37.0) g/dL RDW Std Deviation 44.7 (28.0-62.0) fl RDW Coeff of Naomi 14 (11.0-15.0) % Plt Count 141 L (150-400) K/uL MPV 11.00 (7.40-12.00) fL Neut % (Auto) 83.0 H (48.0-80.0) % Lymph % (Auto) 6.4 L (16.0-40.0) % Tift % (Auto) 10.4 (0.0-15.0) % Eos % (Auto) 0.0 (0.0-7.0) % Baso % (Auto) 0.2 (0.0-1.5) % Neut # (Auto) 7.3 H (1.4-5.7) K/uL Lymph # (Auto) 0.6 (0.6-2.4) K/uL Tift # (Auto) 0.9 H (0.0-0.8) K/uL Eos # (Auto) 0.0 (0.0-0.7) K/uL Baso # (Auto) 0.0 (0.0-0.1) K/uL Nucleated RBC % 0.0 /100WBC Nucleated RBCs # 0 K/uL Sodium 137 (136-148) mmol/L Potassium 4.0 (3.5-5.1) mmol/L Chloride 102 (98-107) mmol/L Carbon Dioxide 27.1 (21.0-32.0) mmol/L BUN 32 H (7.0-18.0) mg/dL Creatinine 1.9 H (0.8-1.3) mg/dL Est Cr Clr Drug Dosing TNP Estimated GFR (MDRD) 34.1 ml/min Glucose 147 H (74-106) mg/dL Calcium 8.1 L (8.5-10.1) mg/dL Total Bilirubin 0.6 (0.2-1.0) mg/dL AST 32 (15-37) IU/L ALT 28 (14-63) IU/L Alkaline Phosphatase 80 (46-116) U/L Troponin I 1.290 H* (0.000-0.056) ng/mL Total Protein 6.8 (6.4-8.2) g/dL Albumin 3.3 L (3.4-5.0) g/dL Globulin 3.5 (2.6-4.0) g/dL Albumin/Globulin Ratio 0.9 (0.9-1.6) Lipase 51 L (73-393) U/L Meds: Medications Generic Name Dose Route Start Last Admin Trade Name Freq PRN Reason Stop Dose Admin Sodium Chloride 10 ml 07/28/21 19:59 Sodium Chloride 0.9% 10 Ml Syringe FLUSH ASDIRECTED PRN Keep Vein Open Sodium Chloride 2.5 ml 07/28/21 19:59 Sodium Chloride 0.9% 2.5 Ml Syringe FLUSH ASDIRECTED PRN Keep Vein Open - Re-Assessments/Exams Free Text/Narrative Re-Assessment/Exam: 07/28/21 20:16 Patient reports he has no COPD or emphysema but he is frequently told by his doctor his oxygen is low when he takes a few deep breaths gets better. This is happened multiple times and he is not using spirometer that he has had in postoperative situations in the past. The bladder has 475 mL of urine after he tries to void. Plan to place a Galarza, get him a spirometer, and see if we can get his oxygen up and get him home. It appears his primary discomfort and general deterioration is because of urinary retention which may be related to anesthesia or prostatic hyperplasia or both 07/28/21 20:32 Galarza catheter was placed and more than 400 mL of urine was returned immediately. 07/28/21 20:36 The the patient's EKG suggested possible acute ischemia and the patient who is a non-smoker and has no chest pain also has a troponin of 1.29. I called [facility] to have the records from yesterday fax but it appears like this patient with acute urinary retention also has a non-STEMI related to the perioperative period. The patient has an oxygen saturation of 93% on room air when he is doing incentive spirometry consistent with his past experience. 07/28/21 20:37 07/28/21 20:[address] Taveras at [facility] and they agreed to take the patient back for cardiology and urology consultation. Departure - Departure Time of Disposition: 21:40 Disposition: DC/Tfer to Acute Hospital 02 Condition: Fair Clinical Impression: Acute urinary retention, Non-STEMI (non-ST elevated myocardial infarction) - Discharge Information Referrals: PCP,None [Primary Care Provider] - Forms: ED Department Discharge Sepsis Event Note (ED) - Focused Exam Vital Signs: Vital Signs Temp Pulse Resp BP Pulse Ox 07/28/21 19:50 36.8 C 71 18 105/76 85 L - My Orders Last 24 Hours: My Active Orders 07/28/21 19:59 EKG Documentation Completion [RC] AM Chest 1V Frontal [CR] Stat Sodium Chloride 0.9% [Saline Flush] 10 ml FLUSH ASDIRECTED PRN Sodium Chloride 0.9% [Saline Flush] 2.5 ml FLUSH ASDIRECTED PRN Saline Lock Insert [OM.PC] Stat 07/28/21 20:00 KUB [Abdomen 1V Flat] [CR] Stat UA W/GOLD RFLX IF INDICATED [URIN] Stat 07/28/21 20:01 Communication Order [RC] STAT 07/28/21 20:02 Urinary Catheter Assessment [RC] ASDIRECTED 07/28/21 20:15 Galarza Catheter Insertion [Insert Urinary Catheter] [OM.PC] Q24H 07/28/21 20:19 Incentive Spirometry [RT Incentive Spirometry] [RC] ONETIME - Assessment/Plan Last 24 Hours: My Active Orders 07/28/21 19:59 EKG Documentation Completion [RC] AM Chest 1V Frontal [CR] Stat Sodium Chloride 0.9% [Saline Flush] 10 ml FLUSH ASDIRECTED PRN Sodium Chloride 0.9% [Saline Flush] 2.5 ml FLUSH ASDIRECTED PRN Saline Lock Insert [OM.PC] Stat 07/28/21 20:00 KUB [Abdomen 1V Flat] [CR] Stat UA W/GOLD RFLX IF INDICATED [URIN] Stat 07/28/21 20:01 Communication Order [RC] STAT 07/28/21 20:02 Urinary Catheter Assessment [RC] ASDIRECTED 07/28/21 20:15 Galarza Catheter Insertion [Insert Urinary Catheter] [OM.PC] Q24H 07/28/21 20:19 Incentive Spirometry [RT Incentive Spirometry] [RC] ONETIME
[2021-07-28 20:31] LABS: BLOOD UREA NITROGEN,BUN 32 mg/dL (7.0-18.0); CARBON DIOXIDE,CO2 27.1 mmol/L (21.0-32.0); CHLORIDE,CL 102 mmol/L (98-107); GLUCOSE RANDOM 147 mg/dL (74-106); LIPASE 51 U/L (73-393); SODIUM,NA 137 mmol/L (136-148)
[2021-07-28] MEDS ORDERED: Sodium Chloride 0.9% 1,000 ML IV SCH (21:15)
--- NOTE | 2021-07-28 21:18 | CR ---
Indication: Postop day 1 cholecystectomy, abdominal pain Technique: KUB 2 view Comparison: None Findings/Impression: : Soft tissues: No suspicious calcifications to suggest kidney or ureteral stones. No sign of free air. No sign of soft tissue mass. Surgical clips in the right upper quadrant. Bowel: Bowel pattern is within normal limits. Bones: Internal fixation hardware in the lower lumbar spine. Neurostimulator device projects over the left lower abdomen Dictated by Anne Lara MD @ 07/28/2021 9:17:59 PM (Electronically Signed)
--- NOTE | 2021-07-28 21:20 | CR ---
Indication: Postop day 1 cholecystectomy, chest pain Technique: Chest 1 view Comparison: Chest CT June 17, 2021 Findings/Impression: Cardiomegaly. Low lung volumes. No focal consolidation, effusion, or pneumothorax. No acute osseous abnormality. Surgical anchors in the left humeral head. Surgical louisa in the right upper quadrant. Neurostimulator leads project over the mid thoracic spine. Dictated by Anne Lara MD @ 07/28/2021 9:19:20 PM (Electronically Signed)
[2021-07-28 21:47] VITALS: BP 127/83; PULSE 63
== END 2021-07-28 21:44 ==
LOC: MW.ED 19:49
DX: I21.4 Non-ST elevation (NSTEMI) myocardial infarction (principal); R33.9 Retention of urine, unspecified; K21.9 Gastro-esophageal reflux disease without esophagitis; I10 Essential (primary) hypertension; Z79.82 Long term (current) use of aspirin; Z79.899 Other long term (current) drug therapy
CPT/HCPCS: 36415; 51702; 71045; 74018; 80053; 83690; 84484; 85025; 93005; 99285; J7030

== ENCOUNTER 2023-12-15 17:24 | Emergency (ER) | payer MEDICARE, BC ==
[2023-12-15] MEDS: Sodium Chloride 0.9% 2.5 ML Syringe FLUSH PRN (18:00)
[2023-12-15] MEDS: Sodium Chloride 0.9% 10 ML Syringe FLUSH PRN (18:00)
[2023-12-15] MEDS: Albuterol/Ipratropium 3.0-0.5 MG/3 ML Neb Soln NEB ONE ×2 (18:00→19:31)
[2023-12-15 18:39] LABS: CORONAVIRUS COVID-19 NAA NEGATIVE (NEGATIVE); INFLUENZA A NAA NEGATIVE (NEGATIVE); INFLUENZA B NAA NEGATIVE (NEGATIVE); RESPIRATORY SYNCYTIAL VIR NAA NEGATIVE (NEGATIVE)
[2023-12-15 19:05] LABS: BASOPHILS ABSOLUTE AUTO 0.02 K/uL (0.00-0.20); BASOPHILS PERCENT AUTO 0.3 % (0.0-1.0); EOSINOPHILS ABSOLUTE AUTO 0.03 K/uL (0.00-0.45); EOSINOPHILS PERCENT AUTO 0.5 % (0.0-6.0); HEMATOCRIT 41.4 % (42.0-52.0); HEMOGLOBIN 13.9 g/dL (14.0-18.0); IMMATURE GRAN ABSOLUTE AUTO 0.09 K/uL (0.00-0.05); IMMATURE GRAN PERCENT AUTO 1.5 % (0.0-0.4); LYMPHOCYTES ABSOLUTE AUTO 0.83 K/uL (1.00-4.80); LYMPHOCYTES PERCENT AUTO 13.6 % (24.0-44.0); MEAN CORPUSCULAR HEMOGLOBIN 29.8 pg (28.0-32.0); MEAN CORPUSCULAR HGB CONC 33.6 g/dL (32.0-36.0); MEAN CORPUSCULAR VOLUME 88.8 fL (83.0-99.0); MONOCYTES ABSOLUTE AUTO 0.81 K/uL (0.00-0.80); MONOCYTES PERCENT AUTO 13.2 % (0.0-8.0); NEUTROPHILS ABSOLUTE AUTO 4.34 K/uL (1.80-7.70); NEUTROPHILS PERCENT AUTO 70.9 % (41.0-71.0); PLATELET COUNT,PLT 123 K/uL (150-400); RED BLOOD CELL COUNT 4.66 M/uL (4.52-5.90); WHITE BLOOD CELL COUNT,WBC 6.12 K/uL (3.9-11.3)
[2023-12-15 19:39] LABS: A/G RATIO 1.1 (0.9-1.6); BILIRUBIN TOTAL 0.5 mg/dL (0.2-1.0); CALCIUM 8.7 mg/dL (8.5-10.1); CARBON DIOXIDE,CO2 28.2 mmol/L (21.0-32.0); CREATININE 1.5 mg/dL (0.8-1.3); EST CRCL DRUG DOSING (CG) 40.24 mL/min; POTASSIUM,K 4.1 mmol/L (3.5-5.1); PROTEIN TOTAL,TP 7.5 g/dL (6.4-8.2)
[2023-12-15] MEDS: Azithromycin 250 MG Tab PO STA (19:57)
[2023-12-15] MEDS: Albuterol 8 GM Inhaler INH ONE (19:58)
[2023-12-15 20:09] VITALS: BP 130/79; PULSE 96
== END 2023-12-15 20:07 | disposition home or self-care (01) ==
LOC: MW.ED 17:24
DX: J18.9 Pneumonia, unspecified organism (principal); I10 Essential (primary) hypertension; Z79.2 Long term (current) use of antibiotics; Z79.82 Long term (current) use of aspirin; Z79.899 Other long term (current) drug therapy; Z75.8 Other problems related to medical facilities and other health care
CPT/HCPCS: 0241U; 36415; 71045; 80053; 84484; 85025; 99285; A9270; J3490; 93010; 99283; J7620-GY

== ENCOUNTER 2025-05-06 11:07 | Emergency (ER) | payer BC, MEDICARE ==
[2025-05-06 11:36] LABS: BASOPHILS ABSOLUTE AUTO 0.04 K/uL (0.00-0.20); BASOPHILS PERCENT AUTO 0.7 % (0.0-1.0); EOSINOPHILS ABSOLUTE AUTO 0.26 K/uL (0.00-0.45); EOSINOPHILS PERCENT AUTO 4.7 % (0.0-6.0); IMMATURE GRAN ABSOLUTE AUTO 0.02 K/uL (0.00-0.05); IMMATURE GRAN PERCENT AUTO 0.4 % (0.0-0.4); LYMPHOCYTES ABSOLUTE AUTO 1.10 K/uL (1.00-4.80); LYMPHOCYTES PERCENT AUTO 19.9 % (24.0-44.0); MEAN PLATELET VOLUME 10.9 fL (9.4-12.4); MONOCYTES ABSOLUTE AUTO 0.57 K/uL (0.00-0.80); MONOCYTES PERCENT AUTO 10.3 % (0.0-8.0); NEUTROPHILS ABSOLUTE AUTO 3.55 K/uL (1.80-7.70); NEUTROPHILS PERCENT AUTO 64.0 % (41.0-71.0); NRBC ABSOLUTE 0.00 K/uL (0.00-0.02); NRBC PERCENT 0.0 /100WBC (0.0-0.2); PLATELET COUNT,PLT 137 K/uL (150-400); RED BLOOD CELL COUNT 5.29 M/uL (4.52-5.90); WHITE BLOOD CELL COUNT,WBC 5.54 K/uL (3.9-11.3)
[2025-05-06 11:40] LABS: INR 1.03 (0.86-1.11)
[2025-05-06 11:57] LABS: A/G RATIO 1.2 (0.9-1.6); ALANINE AMINOTRANSFERASE,ALT 31.0 IU/L (14-63); ASPARTATE AMNIOTRANSFERASE,AST 23.0 IU/L (15-37); BILIRUBIN TOTAL 0.8 mg/dL (0.2-1.0); BLOOD UREA NITROGEN,BUN 20.0 mg/dL (7.0-18.0); CARBON DIOXIDE,CO2 31.9 mmol/L (21.0-32.0); CHLORIDE,CL 100.0 mmol/L (98-107); CREATININE 1.5 mg/dL (0.8-1.3); EST CRCL DRUG DOSING (CG) 34.2 mL/min; ESTIMATED GFR 45.0 mL/min (>60); GLUCOSE RANDOM 129.0 mg/dL (74-106); POTASSIUM,K 4.3 mmol/L (3.5-5.1); PROTEIN TOTAL,TP 8.0 g/dL (6.4-8.2); SODIUM,NA 138.0 mmol/L (136-148)
[2025-05-06 15:09] VITALS: BP 157/83; PULSE 55
== END 2025-05-06 15:12 | disposition home or self-care (01) ==
LOC: MW.ED 11:07
DX: R07.9 Chest pain, unspecified (principal); I10 Essential (primary) hypertension; K21.9 Gastro-esophageal reflux disease without esophagitis; Z79.82 Long term (current) use of aspirin; Z79.899 Other long term (current) drug therapy
CPT/HCPCS: 36415; 71045; 71045-26; 80053; 83735; 84484; 85025; 85610; 93010; 99283; 99285